=== PATIENT | male | born 1970 | race Two or more races ===

== ENCOUNTER 2021-11-04 12:58 | Emergency (ER) | payer BC ==
[2021-11-04 13:07] VITALS: TEMP 98.2
[2021-11-04 13:10] LABS: Glucose,Whole Blood 171 mg/dL (70-110)
[2021-11-04] MEDS ORDERED: SODIUM CHLORIDE 0.9% 1,000 ML IV ONE (13:38)
[2021-11-04] MEDS ORDERED: SODIUM CHLORIDE 0.9% 500 ML 500 ML IV ONE (13:38)
[2021-11-04] MEDS ORDERED: LORazepam 1 MG TAB PO STA (13:39)
--- NOTE | 2021-11-04 13:50 | ED ---
General Adult HPI - General Chief complaint: Neuro Symptoms/Deficit Stated complaint: neuro issue Time Seen by Provider: 11/04/21 13:30 Source: patient, RN notes reviewed, old records reviewed Mode of arrival: wheelchair Limitations: no limitations - History of Present Illness Initial comments: This is a 51-year-old male who presents to the emergency department and states she woke up this morning just not feeling right. Patient states he went to work felt a little lightheaded and had some tingling in both of his hands both his feet and had a little bit of the shakes was finding it difficult to right. Patient states he is a drinker daily and he hasn't had anything to drink yet today. Patient denies any fever chills. Patient denies headache. Patient denies any actual weakness or numbness. Patient denies any chest pain palpitations difficulty breathing shortest breath per patient denies any recent fever chills or cough per patient has abdominal pain patient denies nausea vomiting diarrhea. Patient states currently his only complaint is overall he feels a little weak. Patient states because he drinks so much she doesn't eat very well at all. - Related Data Previous Rx's Medication Instructions Recorded Metoprolol Tartrate [Lopressor] 12.5 mg PO BID 30 Days #60 tablet 11/04/21 Allergies Allergy/AdvReac Type Severity Reaction Status Date / Time Sulfa (Sulfonamide Allergy Itchy Eyes Verified 11/04/21 14:10 Antibiotics) Review of Systems ROS Statement: Those systems with pertinent positive or pertinent negative responses have been documented in the HPI. ROS Other: All systems not noted in ROS Statement are negative. Past Medical History Past Medical History: No Reported History History of Any Multi-Drug Resistant Organisms: None Reported Past Surgical History: No Surgical Hx Reported Past Psychological History: Anxiety Smoking Status: Current every day smoker Past Alcohol Use History: Occasional Past Drug Use History: None Reported General Exam - General Exam Comments Initial Comments: GENERAL: Patient is well-developed and well-nourished. Patient is nontoxic and well- hydrated and is in mild distress. ENT: Neck is soft and supple. No significant lymphadenopathy is noted. Oropharynx is clear. Moist mucous membranes. Neck has full range of motion without eliciting any pain. EYES: The sclera were anicteric and conjunctiva were pink and moist. Extraocular movements were intact and pupils were equal round and reactive to light. Eyelids were unremarkable. PULMONARY: Unlabored respirations. Good breath sounds bilaterally. No audible rales rhonchi or wheezing was noted. CARDIOVASCULAR: Patient is tachycardic at 110 beats a minute. ABDOMEN: Soft and nontender with normal bowel sounds. SKIN: Skin is clear with no lesions or rashes and otherwise unremarkable. NEUROLOGIC: Patient is alert and oriented x3. Cranial nerves II through XII are grossly intact. Motor and sensory are also intact. Normal speech, volume and content. Symmetrical smile. Patient has a little bit of tremor in his hands but he states this is secondary to not having drank all day normal by now he had a couple beers. MUSCULOSKELETAL: Normal extremities with adequate strength and full range of motion. LYMPHATICS: No significant lymphadenopathy is noted PSYCHIATRIC: Normal psychiatric evaluation. Limitations: no limitations Course Vital Signs 11/04/21 11/04/21 13:01 13:59 Temperature 98.2 F Pulse Rate 112 H 91 Respiratory 18 16 Rate Blood Pressure 182/90 176/96 O2 Sat by Pulse 99 98 Oximetry Medical Decision Making - Medical Decision Making EKG shows sinus rhythm at 94 bpm WA interval 233 QRS is 88 QT interval 06/[birth year]1929 QTC is 36 per patient's EKG shows some peaked T waves in V3 V4 and V5. There is no ST segment elevation Patient was given fluids and felt considerably better. Patient's sodium was low but he admits to eating poorly and drinking daily. Patient states getting a primary medical care doctor patient's mother and sister in the room and in agreement that he has take better care of himself. - Lab Data Result diagrams: 11/04/21 13:59 11/04/21 13:59 Lab Results 11/04/21 11/04/21 11/04/21 Range/Units 13:09 13:59 13:59 WBC 7.9 (3.8-10.6) k/uL RBC 4.48 (4.30-5.90) m/uL Hgb 13.4 (13.0-17.5) gm/dL Hct 39.1 (39.0-53.0) % MCV 87.3 (80.0-100.0) fL MCH 30.0 (25.0-35.0) pg MCHC 34.4 (31.0-37.0) g/dL RDW 13.8 (11.5-15.5) % Plt Count 300 (150-450) k/uL MPV 6.5 Neutrophils % (Manual) 75 % Lymphocytes % (Manual) 14 % Monocytes % (Manual) 10 % Basophils % (Manual) 1 % Neutrophils # (Manual) 5.93 (1.3-7.7) k/uL Lymphocytes # (Manual) 1.11 (1.0-4.8) k/uL Monocytes # (Manual) 0.79 (0-1.0) k/uL Basophils # (Manual) 0.08 (0-0.2) k/uL Nucleated RBCs 0 (0-0) /100 WBC Manual Slide Review Performed Sodium 125 L (137-145) mmol/L Potassium 3.8 (3.5-5.1) mmol/L Chloride 90 L (98-107) mmol/L Carbon Dioxide 26 (22-30) mmol/L Anion Gap 9 mmol/L BUN 6 L (9-20) mg/dL Creatinine 0.61 L (0.66-1.25) mg/dL Est GFR (CKD-EPI)AfAm >90 (>60 ml/min/1.73 sqM) Est GFR (CKD-EPI)NonAf >90 (>60 ml/min/1.73 sqM) Glucose 170 H (74-99) mg/dL POC Glucose (mg/dL) 171 H (70-110) mg/dL POC Glu Retreader ID Marimar Cruz Calcium 9.5 (8.4-10.2) mg/dL Magnesium 1.6 (1.6-2.3) mg/dL Total Bilirubin 0.8 (0.2-1.3) mg/dL AST 102 H (17-59) U/L ALT 79 H (4-49) U/L Alkaline Phosphatase 59 (38-126) U/L Total Protein 7.6 (6.3-8.2) g/dL Albumin 4.9 (3.5-5.0) g/dL Serum Alcohol <10 mg/dL Disposition Clinical Impression: Alcohol abuse, Hyponatremia, High blood pressure, Generalized weakness Disposition: HOME SELF-CARE Condition: Good Instructions (If sedation given, give patient instructions): Hypertension (ED), Hyponatremia (ED) Additional Instructions: Patient needs to get a primary medical care doctor Patient needs to cut down on the alcohol consumption. Patient needs to eat more healthy diet. Patient needs take blood pressure medications as prescribed. Prescriptions: Metoprolol Tartrate [Lopressor] 12.5 mg PO BID 30 Days #60 tablet Is patient prescribed a controlled substance at d/c from ED?: No Referrals: None,Stated [Primary Care Provider] - 1-2 days Time of Disposition: 16:00
[2021-11-04 14:00] VITALS: PULSE 91
[2021-11-04 14:11] LABS: HCT 39.1 % (39.0-53.0); HGB 13.4 gm/dL (13.0-17.5); MCHC 34.4 g/dL (31.0-37.0); MCV 87.3 fL (80.0-100.0); Mean Platelet Volume 6.5; Platelet Count 300 k/uL (150-450); RBC 4.48 m/uL (4.30-5.90); RDW 13.8 % (11.5-15.5); WBC 7.9 k/uL (3.8-10.6)
[2021-11-04 14:23] LABS: ALT 79 U/L (4-49); AST 102 U/L (17-59); African American GFR (CKD) >90 (>60 ml/min/1.73 sqM); Albumin 4.9 g/dL (3.5-5.0); Alcohol <10 mg/dL; Alkaline Phosphatase 59 U/L (38-126); Anion Gap 9 mmol/L; Blood Urea Nitrogen 6 mg/dL (9-20); Calcium 9.5 mg/dL (8.4-10.2); Carbon Dioxide 26 mmol/L (22-30); Chloride 90 mmol/L (98-107); Glucose 170 mg/dL (74-99); Magnesium 1.6 mg/dL (1.6-2.3); Non-African American GFR(CKD) >90 (>60 ml/min/1.73 sqM); Potassium 3.8 mmol/L (3.5-5.1); Sodium 125 mmol/L (137-145); Total Bilirubin 0.8 mg/dL (0.2-1.3); Total Protein 7.6 g/dL (6.3-8.2)
[2021-11-04 14:56] LABS: Basophils # (M) 0.08 k/uL (0-0.2); Lymphocytes # (M) 1.11 k/uL (1.0-4.8); Monocytes # (M) 0.79 k/uL (0-1.0); Neutrophils # (M) 5.93 k/uL (1.3-7.7); Neutrophils % (M) 75 %; Nucleated Red Blood Cells 0 /100 WBC (0-0); Total Cells Counted 100
[2021-11-04] MEDS ORDERED: hydrALAZINE HCL 20 MG/ML 1 ML VIAL IVP STA (15:35)
[2021-11-04 15:53] VITALS: RESP 22
[2021-11-04 16:20] VITALS: BP 161/95
== END 2021-11-04 16:29 | disposition home or self-care (01) ==
LOC: EC 12:58
DX: F10.10 Alcohol abuse, uncomplicated (principal); E87.1 Hypo-osmolality and hyponatremia; R03.0 Elevated blood-pressure reading, without diagnosis of hypertension; R53.1 Weakness; F17.200 Nicotine dependence, unspecified, uncomplicated; Y90.0 Blood alcohol level of less than 20 mg/100 ml
CPT/HCPCS: 36415; 93005; 80053; 83735; 85025; 80320; 99285; 96374; 96361; J0360

== ENCOUNTER 2023-11-20 05:04 | Inpatient (IN) | payer BC, OTHER ==
[2023-11-20 06:36] LABS: ALT 351 U/L (4-49); African American GFR (CKD) >90 (>60 ml/min/1.73 sqM); Anion Gap 11 mmol/L; Blood Urea Nitrogen 9 mg/dL (9-20); Calcium 8.7 mg/dL (8.4-10.2); Carbon Dioxide 27 mmol/L (22-30); Chloride 104 mmol/L (98-107); Glucose 120 mg/dL (74-99); Non-African American GFR(CKD) >90 (>60 ml/min/1.73 sqM); Sodium 142 mmol/L (137-145)
[2023-11-20 06:46] LABS: HCT 38.3 % (39.0-53.0); HGB 13.2 gm/dL (13.0-17.5); MCHC 34.4 g/dL (31.0-37.0); MCV 96.1 fL (80.0-100.0); Mean Platelet Volume 8.3; Platelet Count 308 k/uL (150-450); RBC 3.99 m/uL (4.30-5.90); RDW 14.7 % (11.5-15.5); WBC 9.4 k/uL (3.8-10.6)
--- NOTE | 2023-11-20 06:48 | CT ---
EXAMINATION TYPE: CT brain wo con DATE OF EXAM: 11/20/2023 COMPARISON: None HISTORY: Patient stats he fell at unknown time. ETOH CT DLP: 1168.6 mGycm Automated exposure control for dose reduction was used. Findings: The ventricles, basal cisterns and sulci over the convexities are within normal limits and there is n o mass effect or shift of midline structures. No abnormal density is seen throughout the brain parenchyma and there is no acute intra or extra-axia l hemorrhage. The posterior fossa including the brainstem, fourth ventricle and cerebellar pontine angles appear no rmal. Intraorbital contents appear normal and symmetric. Visualized paranasal sinuses and mastoid air cells are well aerated. The calvarium is intact. IMPRESSION: No significant abnormality seen. There is no acute bleed or mass effect.
[2023-11-20 06:50] LABS: Basophils # (M) 0.09 k/uL (0-0.2); Eosinophils # (M) 0.28 k/uL (0-0.7); Lymphocytes # (M) 3.38 k/uL (1.0-4.8); Monocytes # (M) 0.66 k/uL (0-1.0); Neutrophils # (M) 4.98 k/uL (1.3-7.7); Neutrophils % (M) 53 %; Nucleated Red Blood Cells 0 /100 WBC (0-0); Total Cells Counted 100
[2023-11-20 07:01] LABS: Alcohol 485 mg/dL
[2023-11-20 07:02] LABS: AST 744 U/L (17-59); Albumin 4.4 g/dL (3.5-5.0); Alkaline Phosphatase 206 U/L (38-126); Potassium 3.7 mmol/L (3.5-5.1); Total Protein 7.1 g/dL (6.3-8.2)
[2023-11-20] MEDS ORDERED: LORazepam 2 MG/ML INJ IV PRN ×2 (07:51)
[2023-11-20] MEDS ORDERED: ACETAMINOPHEN TAB 325 MG TAB PO PRN (07:51)
[2023-11-20] MEDS ORDERED: NALOXONE 0.4 MG/ML 1 ML VIAL IV PRN (07:51)
[2023-11-20] MEDS ORDERED: ONDANSETRON 4 MG/2 ML VIAL IVP PRN (07:51)
[2023-11-20] MEDS ORDERED: MAG HYDROX/AL HYDROX/SIMETH 30 ML CUP PO PRN (07:51)
--- NOTE | 2023-11-20 08:06 | ED ---
Fall HPI - General Chief Complaint: Fall Stated Complaint: Fall Time Seen by Provider: 11/20/23 05:50 Source: EMS Mode of arrival: EMS - History of Present Illness Initial Comments: Is a 53-year-old man who brought by ambulance to have evaluation for ground- level fall. The patient admits he was drinking a fair amount of alcohol tonight. The patient then states he tripped and fell. Patient's family was not able to get him up so they called EMS. Patient states he just has some aches. He denies ayn pain. He states there is a little bit of headache. No neurologic symptoms. 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 Fall Witnessed: no Place Fall Occurred: home Loss of Consciousness: unsure Prolonged Down Time?: no Symptoms Prior to Fall: none Severity: moderate Quality: dull Context: alcohol use Associated Symptoms: denies - Related Data Previous Rx's Medication Instructions Recorded Metoprolol Tartrate [Lopressor] 12.5 mg PO BID 30 Days #60 tablet 11/04/21 Losartan [Cozaar] 50 mg PO DAILY 30 Days #30 tab 11/23/23 Mirtazapine [Remeron] 15 mg PO HS 30 Days #30 tab 11/23/23 Naltrexone HCl [Revia] 50 mg PO DAILY 30 Days #30 tab 11/23/23 Nicotine 21Mg/24Hr Patch [Habitrol] 1 patch TRANSDERM DAILY 14 Days 11/23/23 #14 patch Thiamine [Vitamin B-1] 100 mg PO DAILY 30 Days #30 tab 11/23/23 chlordiazePOXIDE HCl [Librium] 10 mg PO TID 3 Days #9 cap 11/23/23 Allergies Allergy/AdvReac Type Severity Reaction Status Date / Time Sulfa (Sulfonamide Allergy Itchy Eyes Verified 11/20/23 09:50 Antibiotics) Review of Systems ROS Statement: Those systems with pertinent positive or pertinent negative responses have been documented in the HPI. ROS Other: All systems not noted in ROS Statement are negative. Constitutional: Denies: fever, chills Eyes: Denies: eye pain ENT: Denies: epistaxis Respiratory: Denies: cough, dyspnea Cardiovascular: Denies: chest pain, palpitations, syncope Gastrointestinal: Denies: abdominal pain, vomiting, diarrhea Genitourinary: Denies: dysuria, hematuria Musculoskeletal: Denies: back pain Skin: Denies: rash Neurological: Denies: headache, weakness Past Medical History Past Medical History: No Reported History History of Any Multi-Drug Resistant Organisms: None Reported Past Surgical History: No Surgical Hx Reported Past Psychological History: Anxiety Smoking Status: Current every day smoker Past Alcohol Use History: Abuse, Daily, Heavy Past Drug Use History: None Reported General Exam Limitations: no limitations General appearance: alert, in no apparent distress Head exam: Present: normocephalic, other (Contusion) Eye exam: Present: normal appearance, PERRL, EOMI, nystagmus. Absent: scleral icterus, conjunctival injection ENT exam: Present: mucous membranes dry Neck exam: Present: full ROM. Absent: tenderness, meningismus Respiratory exam: Present: normal lung sounds bilaterally. Absent: respiratory distress, wheezes, rales, rhonchi, stridor, chest wall tenderness Cardiovascular Exam: Present: regular rate, normal rhythm, normal heart sounds. Absent: systolic murmur, diastolic murmur, rubs, gallop GI/Abdominal exam: Present: soft. Absent: distended, tenderness, guarding, rebound, rigid Extremities exam: Present: normal inspection, normal capillary refill. Absent: pedal edema, calf tenderness Back exam: Present: normal inspection. Absent: CVA tenderness (R), CVA tenderness (L) Neurological exam: Present: alert Skin exam: Present: warm, dry Course Vital Signs 11/20/23 11/20/23 11/20/23 05:06 07:09 09:00 Temperature 97.7 F Pulse Rate 88 74 72 Respiratory 18 18 18 Rate Blood Pressure 146/62 133/91 134/81 O2 Sat by Pulse 97 98 97 Oximetry 11/20/23 11:00 Temperature Pulse Rate 74 Respiratory 18 Rate Blood Pressure 138/84 O2 Sat by Pulse 97 Oximetry Procedures - [place] Protocol (Time Out) Nurse: Sebastián Cramer Medical Decision Making - Medical Decision Making Patient is 53-year-old man here after he had ground-level fall and then was not able to get up. On the exam, the patient is very intoxicated and not behaving appropriately, therefore CT scan is obtained which I interpreted as negative for acute bony injury, negative for acute intracranial hemorrhage. Was pt. sent in by a medical professional or institution (, PA, OCCUPATIONAL THERAPY AIDES TEACHER, urgent care, hospital, or fpc...) When possible be specific @ -[No] Did you speak to anyone other than the patient for history (EMS, parent, family, police, friend...)? What history was obtained from this source @ -[No] Did you review nursing and triage notes (agree or disagree)? Why? @ -[I reviewed and agree with nursing and triage notes] Were old charts reviewed (outside hosp., previous admission, EMS record, old EKG, old radiological studies, urgent care reports/EKG's, fpc records)? Report findings @ -[No old charts were reviewed] Differential Diagnosis (chest pain, altered mental status, abdominal pain women, abdominal pain men, vaginal bleeding, weakness, fever, dyspnea, syncope, headache, dizziness, GI bleed, back pain, seizure, CVA, palpatations, mental health, musculoskeletal)? @ -[not applicable] EKG interpreted by me (3pts min.). @ -[As above] X-rays interpreted by me (1pt min.). @ -[None done] CT interpreted by me (1pt min.). @ -[I interpreted as above U/S interpreted by me (1pt. min.). @ -[None done] What testing was considered but not performed or refused? (CT, X-rays, U/S, labs)? Why? @ -[None] What meds were considered but not given or refused? Why? @ -[None] Did you discuss the management of the patient with other professionals (professionals i.e. , PA, OCCUPATIONAL THERAPY AIDES TEACHER, lab, RT, psych nurse, sexual assault social worker, communication center coordinator, teacher, chief informatics officer, embedded case manager)? Give summary @ -[Case discussed with admitting physician and treatment recommendations incorporated Was smoking cessation discussed for >3mins.? @ -[No] Was critical care preformed (if so, how long)? @ -[No] Were there social determinants of health that impacted care today? How? (Homelessness, low income, unemployed, alcoholism, drug addiction, transportation, low edu. Level, literacy, decrease access to med. care, half-way, rehab)? @ -[No] Was there de-escalation of care discussed even if they declined (Discuss DNR or withdrawal of care, Hospice)? DNR status @ -[No] What co-morbidities impacted this encounter? (DM, HTN, Smoking, COPD, CAD, Cancer, CVA, ARF, Chemo, Hep., AIDS, mental health diagnosis, sleep apnea, morbid obesity)? @ -[None] Was patient admitted / discharged? Hospital course, mention meds given and route, prescriptions, significant lab abnormalities, going to OR and other pertinent info. @ -[Patient is 53-year-old man here for evaluation after falling at home. He is found to be very intoxicated and will be admitted for impending DTs. Started on CIWA protocol Undiagnosed new problem with uncertain prognosis? @ -[No] Drug Therapy requiring intensive monitoring for toxicity (Heparin, Nitro, Insulin, Cardizem)? @ -[No] Were any procedures done? @ -[No] Diagnosis/symptom? @ -[Acute alcohol intoxication Alcoholic hepatitis Generalized weakness Acute, or Chronic, or Acute on Chronic? @ -[Acute Uncomplicated (without systemic symptoms) or Complicated (systemic symptoms)? @ -[Complicated by generalized weakness Side effects of treatment? @ -[No] Exacerbation, Progression, or Severe Exacerbation? @ -[No] Poses a threat to life or bodily function? How? (Chest pain, [place], [place], pneumonia, PE, COPD, DKA, ARF, appy, cholecystitis, CVA, Diverticulitis, Homicidal, Suicidal, threat to staff... and all critical care pts) @ -[No] - Lab Data Result diagrams: 11/23/23 04:03 11/23/23 04:03 Lab Results 11/20/23 11/20/23 Range/Units 05:56 05:56 WBC 9.4 (3.8-10.6) k/uL RBC 3.99 L (4.30-5.90) m/uL Hgb 13.2 (13.0-17.5) gm/dL Hct 38.3 L (39.0-53.0) % MCV 96.1 (80.0-100.0) fL MCH 33.0 (25.0-35.0) pg MCHC 34.4 (31.0-37.0) g/dL RDW 14.7 (11.5-15.5) % Plt Count 308 (150-450) k/uL MPV 8.3 Neutrophils % (Manual) 53 % Lymphocytes % (Manual) 36 % Monocytes % (Manual) 7 % Eosinophils % (Manual) 3 % Basophils % (Manual) 1 % Neutrophils # (Manual) 4.98 (1.3-7.7) k/uL Lymphocytes # (Manual) 3.38 (1.0-4.8) k/uL Monocytes # (Manual) 0.66 (0-1.0) k/uL Eosinophils # (Manual) 0.28 (0-0.7) k/uL Basophils # (Manual) 0.09 (0-0.2) k/uL Nucleated RBCs 0 (0-0) /100 WBC Manual Slide Review Performed Sodium 142 (137-145) mmol/L Potassium 3.7 (3.5-5.1) mmol/L Chloride 104 (98-107) mmol/L Carbon Dioxide 27 (22-30) mmol/L Anion Gap 11 mmol/L BUN 9 (9-20) mg/dL Creatinine 0.46 L (0.66-1.25) mg/dL Est GFR (CKD-EPI)AfAm >90 (>60 ml/min/1.73 sqM) Est GFR (CKD-EPI)NonAf >90 (>60 ml/min/1.73 sqM) Glucose 120 H (74-99) mg/dL Calcium 8.7 (8.4-10.2) mg/dL Total Bilirubin 1.0 (0.2-1.3) mg/dL AST 744 H (17-59) U/L ALT 351 H (4-49) U/L Alkaline Phosphatase 206 H (38-126) U/L Total Protein 7.1 (6.3-8.2) g/dL Albumin 4.4 (3.5-5.0) g/dL Serum Alcohol 485 H* mg/dL Disposition Clinical Impression: Fall, AMS (altered mental status), Acute alcohol intoxication Disposition: ADMITTED IP TO THIS HOSP Condition: Stable Is patient prescribed a controlled substance at d/c from ED?: No
[2023-11-20] MEDS: SODIUM CHLORIDE 0.9% 1,000 ML IV SCH (08:30)
--- NOTE | 2023-11-20 14:04 | P.HPIM ---
History of Present Illness H&P Date: 11/20/23 Con Prabhakar, is a 53-year-old male who presented to [facility] emergency room with a chief complaint of fall with injury, acute alcohol intoxication, and mental status changes He was evaluated in the emergency room vital examination on presentation revealed a temperature of 97.7 pulse 88 respiration 18 blood pressure 146/62 pulse ox 97% on room air Laboratory data revealed a white blood count of 9.4 hemoglobin 13.2 platelet count 308 BUN 9 creatinine 0.46 AST 744 ALT 351 alkaline phosphatase 206 serum alcohol level 485 Testing in the emergency room revealed CT scan of the brain did not reveal any acute abnormality Patient was admitted to medical floor for further evaluation and treatment Past Medical History Past Medical History: No Reported History History of Any Multi-Drug Resistant Organisms: None Reported Past Surgical History: No Surgical Hx Reported Past Psychological History: Anxiety Smoking Status: Current every day smoker Past Alcohol Use History: Abuse, Daily, Heavy Past Drug Use History: None Reported Medications and Allergies Home Medications Medication Instructions Recorded Confirmed Type Metoprolol Tartrate [Lopressor] 12.5 mg PO BID 30 Days #60 tablet 11/04/21 11/20/23 Rx Allergies Allergy/AdvReac Type Severity Reaction Status Date / Time Sulfa (Sulfonamide Allergy Itchy Eyes Verified 11/20/23 09:50 Antibiotics) Physical Exam Vitals: Vital Signs Temp Pulse Resp BP Pulse Ox 11/20/23 09:00 72 18 134/81 97 11/20/23 07:09 74 18 133/91 98 11/20/23 05:06 97.7 F 88 18 146/62 97 Intake and Output 11/19/23 11/20/23 11/20/23 22:59 06:59 14:59 Other: Weight 58.967 kg In general patient is alert and oriented x 3 in no distress HEENT head normocephalic there is bruising above and below the left eye Neck is supple no JVD no goiter no lymphadenopathy no carotid bruit Chest examination is clear to auscultation no crackles no wheezing Cardiac exam reveals regular heart sounds S1 and S2 no gallops no murmurs Abdomen is soft nontender no organomegaly with normal bowel sounds Extremity exam reveals no edema no cyanosis or clubbing Neurological examination reveals no gross focal deficits Results CBC & Chem 7: 11/20/23 05:56 11/20/23 05:56 Labs: Abnormal Lab Results - Last 24 Hours (Table) 11/20/23 11/20/23 Range/Units 05:56 05:56 RBC 3.99 L (4.30-5.90) m/uL Hct 38.3 L (39.0-53.0) % Creatinine 0.46 L (0.66-1.25) mg/dL Glucose 120 H (74-99) mg/dL AST 744 H (17-59) U/L ALT 351 H (4-49) U/L Alkaline Phosphatase 206 H (38-126) U/L Serum Alcohol 485 H* mg/dL Assessment and Plan Plan: Fall with injury Acute mental status changes Severe alcohol intoxication Acute alcoholic hepatitis Evidence of depression Underlying history of hypertension Underlying history of hyperlipidemia At this time patient was seen and examined He was admitted to medical floor Home medications reviewed and reordered Patient was started on CIWA protocol Psychiatry consultation requested Will follow closely
[2023-11-20] MEDS: LORazepam 2 MG/ML INJ IV PRN (17:26)
--- NOTE | 2023-11-20 18:56 | P.CN ---
Psychiatric Consult - . Consult date: 11/20/23 Consult:: 11/20/23 18:44 IDENTIFYING DATA: This patient is a 53-year-old male REASON FOR REFERRAL: Psychiatry was consulted for Depression and alcohol withdrawal HISTORY OF PRESENT ILLNESS: The patient presented to the hospital for falls due to alcohol intoxication and subsequent withdrawal. Patient seen bedside this evening. He states that he has been consuming 2 pints of vodka over the past one week. He reports consuming beer prior to this. He states that he has had a long history of alcohol use and has been to [facility] in the past year. He is interested in Rehab. Patient is currently tremulous but otherwise denies alcohol withdrawal symptoms. He has been receiving Ativan per [place] protocol. Patient also admits to depressed mood that has worsened over the past few months. He admits that alcohol consumption has worsened his mood also. However, he endorses having low mood on the inside prior to consuming alcohol. He currently states that he has trouble sleeping without alcohol, has fluctua ting appetite, has anhedonia, and psychomotor retardation. He denies suicidal ideation, intent or plan,as asked and assessed. He denies homicidal ideation. Patient also states that he is chronically worried, has anxiety since he can remember. He endorses having racing thoughts, trouble relaxing, feeling on edge, muscle fatigue due to his anxiety. He denies symptoms consistent with corrine. Patient denies any auditory, visual hallucinations and denies any paranoia or delusions, as asked and assessed. PAST PSYCHIATRIC HISTORY: Patient denies a history of psychiatric medication treatment or management. He reports he has been on Xanax in the past for alcohol withdrawal but otherwise denies being on psychotropic medications. She denies any psychiatric hospitalizations. He denies NSSI and suicide attempts. PAST MEDICAL HISTORY: Past Medical History: No Reported History History of Any Multi-Drug Resistant Organisms: None Reported Past Surgical History: No Surgical Hx Reported Past Psychological History: Anxiety Smoking Status: Current every day smoker Past Alcohol Use History: Abuse, Daily, Heavy Past Drug Use History: None Reported ALLERGIES: as per EMR. CHEMICAL DEPENDENCY HISTORY: as per HPI. Patient also reports having used cannabis in the past but denies this recently. He endorses being a one pack per day smoker. He denies other substance use. He is interested in tobacco ce ssation. FAMILY PSYCHIATRIC/SUBSTANCE USE HISTORY: Father: Alcohol. Mother's side: Alcohol. Mother: Depression. Brother: Alcohol. SOCIAL HISTORY: Patient states that he is currently residing with a friend who is supportive. He also reports that his family is largely supportive. MENTAL STATUS EXAM: General Appearance: Patient appears to be stated age is alert, pleasant, and cooperative. Patient appears to have fair hygiene and grooming wearing hospital gown with fair eye contact. Behavior: Patient is calmly lying in bed without any agitated behavior. Bilateral tremor notable Speech: Patient's speech is fluent and nonpressured. Mood/Affect: Patient reports their mood is "fine", affect is congruent Suicidality/Homicidality: Patient denies having any suicidal or homicidal ideation intent or plan. Perceptions: Patient denies any visual hallucinations and denies any auditory hallucinations Though content/process: There is no evidence of any delusional thought content and thought process is linear and goal-directed. Memory and concentration: AOX3, grossly intact for the purposes of this session. Can spell "WORLD" backwards Judgment and insight: Fair IMPRESSIONS: Depressive disorder, unspecified. MDD vs alcohol-induced mood disorder Alcohol use disorder, severe, in withdrawal Generalized anxiety disorder Nicotine dependence PLAN: -At this time patient DOES NOT meet criteria for inpatient psychiatric admission -Would recommend the following medication changes/additions: Start Remeron 15 mg qHS for mood & sleep Start Naltrexone 50 mg daily for alcohol craving Start Librium 10 mg TID for preventing withdrawal. Taper daily as tolerated -CIWA protocol with PRN Ativan for alcohol withdrawal per primary team. Continue to monitor vital signs. Continue thiamin -cold storage worker to provide patient with outpatient mental health/psychiatry resources for appropriate follow up upon discharge -[employer] spoke with patient about substance abuse and the harmful effects on medical and mental health, patient verbally understood and agreed. -cold storage worker to provide patient substance use treatment resources including AA meetings in the community.] -cold storage worker to provide patient with access line number to call for inpatient substance rehab -Communicated plan to patient's nurse -Psychiatry will sign off at this time -Please contact with any questions.
[2023-11-20] MEDS: NALTREXONE HCL 50 MG TAB PO SCH (20:57)
[2023-11-20] MEDS: MIRTAZAPINE 15 MG TAB PO SCH (20:58)
[2023-11-20] MEDS: METOPROLOL TARTRATE 12.5 MG TAB PO SCH (20:58)
[2023-11-21] MEDS: THIAMINE 100 MG TAB PO SCH (08:21)
--- NOTE | 2023-11-21 09:33 | P.PN ---
Subjective Progress Note Date: 11/21/23 Con Prabhakar, is a 53-year-old male who presented to [facility] emergency room with a chief complaint of fall with injury, acute alcohol intoxication, and mental status changes He was evaluated in the emergency room vital examination on presentation revealed a temperature of 97.7 pulse 88 respiration 18 blood pressure 146/62 pulse ox 97% on room air Laboratory data revealed a white blood count of 9.4 hemoglobin 13.2 platelet count 308 BUN 9 creatinine 0.46 AST 744 ALT 351 alkaline phosphatase 206 serum alcohol level 485 Testing in the emergency room revealed CT scan of the brain did not reveal any acute abnormality Patient was admitted to medical floor for further evaluation and treatment On 11/21/2023 patient is alert and oriented x 3. Patient still requiring some At [place] for alcohol withdrawal per nursing staff. Patient was evaluated by psychiatry services Librium and Remeron had been ordered. Current vital signs Temp 98.3, heart 69, respiratory rate 19, blood pressure 166/92. Patient denies chest pain or shortness of breath. Patient denies nausea vomiting or diarrhea. Patient denies any urinary burning or frequency Objective - Vital Signs Vital signs: Vital Signs Temp 98.2 F 11/21/23 02:00 Pulse 68 11/21/23 02:00 Resp 17 11/20/23 11:40 BP 186/93 11/21/23 02:00 Pulse Ox 97 11/21/23 02:00 FiO2 Intake & Output 11/20/23 11/21/23 11/21/23 18:59 06:59 18:59 Intake Total 900 Balance 900 Weight 58.967 kg Intake: Intake, IV Titration 900 Amount Sodium Chloride 0.9% 1, 900 000 ml @ 75 mls/hr IV . [id number] [facility] Rx#:[id number] Other: # Voids 4 - Exam In general patient is alert and oriented x 3 in no distress HEENT head normocephalic there is bruising above and below the left eye Neck is supple no JVD no goiter no lymphadenopathy no carotid bruit Chest examination is clear to auscultation no crackles no wheezing Cardiac exam reveals regular heart sounds S1 and S2 no gallops no murmurs Abdomen is soft nontender no organomegaly with normal bowel sounds Extremity exam reveals no edema no cyanosis or clubbing Neurological examination reveals no gross focal deficits - Labs CBC & Chem 7: 07/27/24 05:56 11/20/23 05:56 Assessment and Plan Plan: Fall with injury Acute mental status changes Severe alcohol intoxication Acute alcoholic hepatitis Evidence of depression Underlying history of hypertension Underlying history of hyperlipidemia At this time patient was seen and examined He was admitted to medical floor Home medications reviewed and reordered Patient was started on CIWA protocol Psychiatry consultation requested Will follow closely
[2023-11-21 10:04] LABS: Basophils # (A) 0.06 X 10*3/uL (0.00-0.10); Eosinophils % (A) 1.7 %; HCT 34.9 % (39.6-50.0); HGB 12.1 g/dL (13.0-17.0); Lymphocytes % (A) 20.4 %; MCH 32.1 pg (27.0-32.0); MCHC 34.7 g/dL (32.0-37.0); MCV 92.6 FL (80.0-97.0); Mean Platelet Volume 9.3 FL (9.5-12.2); Monocytes # (A) 0.53 X 10*3/uL (0.20-1.00); NRBC Per 100 WBC 0 X 10*3/uL (0.00-0.01); Neutrophils # (A) 3.93 X 10*3/uL (1.80-7.70); Neutrophils % (A) 66.7 %; Platelet Count 239 X 10*3/uL (140-440); RBC 3.77 X 10*6/uL (4.40-5.60); RDW 14.7 % (11.5-14.5); WBC 5.89 X 10*3/uL (4.50-10.00)
[2023-11-21 10:25] LABS: ALT 311 U/L (10-49); AST 422 U/L (14-35); Albumin 4.3 g/dL (3.8-4.9); Albumin/Globulin Ratio 1.87 Ratio (1.60-3.17); Alkaline Phosphatase 213 U/L (41-126); BUN/Creat Ratio 17.75 Ratio (12.00-20.00); Blood Urea Nitrogen 7.1 mg/dL (9.0-27.0); Calcium 8.6 mg/dL (8.7-10.3); Carbon Dioxide 28.6 mmol/L (21.6-31.8); Chloride 96 mmol/L (96-109); Globulin 2.3 g/dL (1.6-3.3); Glucose 93 mg/dL (70-110); Sodium 139 mmol/L (135-145); Total Bilirubin 1.2 mg/dL (0.3-1.2); Total Protein 6.6 g/dL (6.2-8.2)
[2023-11-21] MEDS: NICOTINE 21MG/24HR PATCH TRANSDERM SCH (16:59)
[2023-11-22 08:48] LABS: Basophils # (A) 0.08 X 10*3/uL (0.00-0.10); Basophils % (A) 1.2 %; Eosinophils % (A) 2.9 %; HCT 37.2 % (39.6-50.0); HGB 12.7 g/dL (13.0-17.0); Lymphocytes # (A) 1.37 X 10*3/uL (0.90-5.00); Lymphocytes % (A) 20.1 %; MCH 31.9 pg (27.0-32.0); MCHC 34.1 g/dL (32.0-37.0); MCV 93.5 FL (80.0-97.0); Mean Platelet Volume 9.5 FL (9.5-12.2); Monocytes # (A) 0.61 X 10*3/uL (0.20-1.00); NRBC Per 100 WBC 0 X 10*3/uL (0.00-0.01); Neutrophils # (A) 4.43 X 10*3/uL (1.80-7.70); Neutrophils % (A) 65.2 %; Platelet Count 246 X 10*3/uL (140-440); RBC 3.98 X 10*6/uL (4.40-5.60); RDW 14.5 % (11.5-14.5)
[2023-11-22 09:23] LABS: ALT 382 U/L (10-49); AST 521 U/L (14-35); Albumin 4.4 g/dL (3.8-4.9); Albumin/Globulin Ratio 1.83 Ratio (1.60-3.17); Alkaline Phosphatase 231 U/L (41-126); Blood Urea Nitrogen 5.7 mg/dL (9.0-27.0); Calcium 9.2 mg/dL (8.7-10.3); Carbon Dioxide 25.6 mmol/L (21.6-31.8); Chloride 99 mmol/L (96-109); Globulin 2.4 g/dL (1.6-3.3); Glucose 94 mg/dL (70-110); Potassium 3.1 mmol/L (3.5-5.5); Sodium 140 mmol/L (135-145); Total Bilirubin 1.7 mg/dL (0.3-1.2); Total Protein 6.8 g/dL (6.2-8.2)
[2023-11-22] MEDS ORDERED: Potassium Replacement Protocol 1 EACH MISC MISCELLANE PRN (10:06)
--- NOTE | 2023-11-22 13:17 | P.PN ---
Subjective Progress Note Date: 11/22/23 Con Prabhakar, is a 53-year-old male who presented to [facility] emergency room with a chief complaint of fall with injury, acute alcohol intoxication, and mental status changes He was evaluated in the emergency room vital examination on presentation revealed a temperature of 97.7 pulse 88 respiration 18 blood pressure 146/62 pulse ox 97% on room air Laboratory data revealed a white blood count of 9.4 hemoglobin 13.2 platelet count 308 BUN 9 creatinine 0.46 AST 744 ALT 351 alkaline phosphatase 206 serum alcohol level 485 Testing in the emergency room revealed CT scan of the brain did not reveal any acute abnormality Patient was admitted to medical floor for further evaluation and treatment On 11/21/2023 patient is alert and oriented x 3. Patient still requiring some At [place] for alcohol withdrawal per nursing staff. Patient was evaluated by psychiatry services Librium and Remeron had been ordered. Current vital signs Temp 98.3, heart 69, respiratory rate 19, blood pressure 166/92. Patient denies chest pain or shortness of breath. Patient denies nausea vomiting or diarrhea. Patient denies any urinary burning or frequency. On 11/22/2023 patient was seen and examined on the medical floor he is alert and oriented x 3 in no apparent distress, he has mild tremor otherwise no complaints, there is no fever or chills no headache or dizziness no chest pain no shortness of breath no cough no nausea or vomiting no abdominal pain no diarrhea no urinary symptoms, his potassium is low and being corrected by the protocol, his blood pressure is elevated and losartan 50 mg once daily was added to his medication regimen, will continue with current management otherwise he was counseled again in regard to alcohol abstinence, will follow in a.m. possible discharge to home tomorrow. Objective - Vital Signs Vital signs: Vital Signs Temp 98.2 F 11/22/23 07:44 Pulse 78 11/22/23 07:44 Resp 17 11/22/23 07:44 BP 151/84 11/22/23 07:44 Pulse Ox 98 11/22/23 07:44 FiO2 Intake & Output 11/21/23 11/22/23 11/22/23 18:59 06:59 18:59 Other: # Voids 3 - Exam In general patient is alert and oriented x 3 in no distress HEENT head normocephalic there is bruising above and below the left eye Neck is supple no JVD no goiter no lymphadenopathy no carotid bruit Chest examination is clear to auscultation no crackles no wheezing Cardiac exam reveals regular heart sounds S1 and S2 no gallops no murmurs Abdomen is soft nontender no organomegaly with normal bowel sounds Extremity exam reveals no edema no cyanosis or clubbing Neurological examination reveals no gross focal deficits - Labs CBC & Chem 7: 11/22/23 03:53 11/22/23 03:53 Labs: Abnormal Lab Results - Last 24 Hours (Table) 11/21/23 11/22/23 11/22/23 Range/Units 04:02 03:53 03:53 RBC 3.98 L (4.40-5.60) X 10*6/uL Hgb 12.7 L (13.0-17.0) g/dL Hct 37.2 L (39.6-50.0) % Immature Gran # 0.11 H (0.00-0.04) X 10*3/uL Potassium 3.0 L 3.1 L (3.5-5.5) mmol/L Anion Gap 14.40 H 15.40 H (4.00-12.00) mmol/L BUN 7.1 L 5.7 L (9.0-27.0) mg/dL Creatinine 0.4 L 0.5 L (0.6-1.5) mg/dL BUN/Creatinine Ratio 11.40 L (12.00-20.00) Ratio Calcium 8.6 L (8.7-10.3) mg/dL Total Bilirubin 1.7 H (0.3-1.2) mg/dL AST 422 H 521 H (14-35) U/L ALT 311 H 382 H (10-49) U/L Alkaline Phosphatase 213 H 231 H (41-126) U/L Assessment and Plan Plan: Fall with injury Acute mental status changes Severe alcohol intoxication Acute alcoholic hepatitis Evidence of depression Underlying history of hypertension Underlying history of hyperlipidemia At this time patient was seen and examined He was admitted to medical floor Home medications reviewed and reordered Patient was started on CIWA protocol Psychiatry consultation requested Will follow closely
[2023-11-22] MEDS: LOSARTAN 50 MG TAB PO SCH (14:26)
[2023-11-22 16:03] VITALS: BMI 18.6
[2023-11-22 20:21] VITALS: RESP 18
[2023-11-23 08:02] VITALS: BP 167/91; PULSE 72; TEMP 97.4
[2023-11-23 08:45] LABS: Basophils # (A) 0.09 X 10*3/uL (0.00-0.10); Basophils % (A) 1.1 %; Eosinophils # (A) 0.23 X 10*3/uL (0.04-0.35); Eosinophils % (A) 2.7 %; HCT 36.3 % (39.6-50.0); HGB 12.1 g/dL (13.0-17.0); Lymphocytes # (A) 1.62 X 10*3/uL (0.90-5.00); Lymphocytes % (A) 19.3 %; MCH 31.5 pg (27.0-32.0); MCHC 33.3 g/dL (32.0-37.0); MCV 94.5 FL (80.0-97.0); Monocytes % (A) 9.5 %; NRBC Per 100 WBC 0 X 10*3/uL (0.00-0.01); Neutrophils # (A) 5.52 X 10*3/uL (1.80-7.70); Neutrophils % (A) 65.9 %; Platelet Count 240 X 10*3/uL (140-440); RBC 3.84 X 10*6/uL (4.40-5.60); RDW 14.8 % (11.5-14.5); WBC 8.39 X 10*3/uL (4.50-10.00)
[2023-11-23 08:59] LABS: ALT 322 U/L (10-49); AST 323 U/L (14-35); Albumin 4.4 g/dL (3.8-4.9); Albumin/Globulin Ratio 1.91 Ratio (1.60-3.17); Alkaline Phosphatase 226 U/L (41-126); Calcium 9.3 mg/dL (8.7-10.3); Carbon Dioxide 24.3 mmol/L (21.6-31.8); Chloride 101 mmol/L (96-109); Globulin 2.3 g/dL (1.6-3.3); Glucose 98 mg/dL (70-110); Potassium 3.3 mmol/L (3.5-5.5); Sodium 139 mmol/L (135-145); Total Bilirubin 1.6 mg/dL (0.3-1.2); Total Protein 6.7 g/dL (6.2-8.2)
--- NOTE | 2023-11-23 11:00 | P.DS ---
Providers Date of admission: 11/20/23 07:51 Expected date of discharge: 11/23/23 Attending physician: Brian Dobson Consults: 11/20/23 14:04 Consult Physician Routine Consulting Provider: Hernán Bello Consult Reason/Comments: Depression, alcohol abuse Do you want consulting provider notified?: Yes Primary care physician: Brian Dobson [place] [facility] Course: Discharge diagnosis Fall with injury Acute mental status changes Severe alcohol intoxication Acute alcoholic hepatitis Evidence of depression Underlying history of hypertension Underlying history of hyperlipidemia Hospital course Con Prabhakar, is a 53-year-old male who presented to [facility] emergency room with a chief complaint of fall with injury, acute alcohol intoxication, and mental status changes He was evaluated in the emergency room vital examination on presentation revealed a temperature of 97.7 pulse 88 respiration 18 blood pressure 146/62 pulse ox 97% on room air Laboratory data revealed a white blood count of 9.4 hemoglobin 13.2 platelet count 308 BUN 9 creatinine 0.46 AST 744 ALT 351 alkaline phosphatase 206 serum alcohol level 485 Testing in the emergency room revealed CT scan of the brain did not reveal any acute abnormality Patient was admitted to medical floor for further evaluation and treatment On 11/21/2023 patient is alert and oriented x 3. Patient still requiring some Ativan for alcohol withdrawal per nursing staff. Patient was evaluated by psychiatry services Librium and Remeron had been ordered. Current vital signs Temp 98.3, heart 69, respiratory rate 19, blood pressure 166/92. Patient denies chest pain or shortness of breath. Patient denies nausea vomiting or diarrhea. Patient denies any urinary burning or frequency. On 11/22/2023 patient was seen and examined on the medical floor he is alert and oriented x 3 in no apparent distress, he has mild tremor otherwise no compl aints, there is no fever or chills no headache or dizziness no chest pain no shortness of breath no cough no nausea or vomiting no abdominal pain no diarrhea no urinary symptoms, his potassium is low and being corrected by the protocol, his blood pressure is elevated and losartan 50 mg once daily was added to his medication regimen, will continue with current management otherwise he was counseled again in regard to alcohol abstinence, will follow in a.m. possible discharge to home tomorrow. On 11/23/2023 patient is alert and oriented x 3. Patient feels ready for discharge home. Patient again advised on the importance of complete alcohol cessation resources given per social work. Patient discharged on Remeron, and naltrexone and Librium per psychiatry recommendation. Patient denies chest pain or shortness of breath. Patient denies nausea vomiting or diarrhea. Patient denies any urinary burning or frequency Patient Condition at Discharge: Stable Plan - Discharge Summary Discharge Rx Participant: Yes New Discharge Prescriptions: New Losartan [Cozaar] 50 mg PO DAILY 30 Days #30 tab Thiamine [Vitamin B-1] 100 mg PO DAILY 30 Days #30 tab Nicotine 21Mg/24Hr Patch [Habitrol] 1 patch TRANSDERM DAILY 14 Days #14 patch chlordiazePOXIDE HCl [Librium] 10 mg PO TID 3 Days #9 cap Mirtazapine [Remeron] 15 mg PO HS 30 Days #30 tab Naltrexone HCl [Revia] 50 mg PO DAILY 30 Days #30 tab Continue Metoprolol Tartrate [Lopressor] 12.5 mg PO BID 30 Days #60 tablet Discharge Medication List Metoprolol Tartrate [Lopressor] 12.5 mg PO BID 30 Days #60 tablet 11/04/21 [Rx] Losartan [Cozaar] 50 mg PO DAILY 30 Days #30 tab 11/23/23 [Rx] Mirtazapine [Remeron] 15 mg PO HS 30 Days #30 tab 11/23/23 [Rx] Naltrexone HCl [Revia] 50 mg PO DAILY 30 Days #30 tab 11/23/23 [Rx] Nicotine 21Mg/24Hr Patch [Habitrol] 1 patch TRANSDERM DAILY 14 Days #14 patch 11/23/23 [Rx] Thiamine [Vitamin B-1] 100 mg PO DAILY 30 Days #30 tab 11/23/23 [Rx] chlordiazePOXIDE HCl [Librium] 10 mg PO TID 3 Days #9 cap 11/23/23 [Rx] Follow up Appointment(s)/Referral(s): Brian Dobson MD [Primary Care Provider] - 1-2 days Discharge/Stand Alone Forms: AA Meetings [facility], Outpatient Counseling, In Substance Abuse Facilities
== END 2023-11-23 12:30 | disposition home or self-care (01) | DRG 775 ==
LOC: EC 05:04 → 4SSUR 07:51
PROVIDERS: ADMIT Internal Medicine; ATTEND Internal Medicine
DX: F10.129 Alcohol abuse with intoxication, unspecified (principal); Z91.81 History of falling; E78.5 Hyperlipidemia, unspecified; F10.139 Alcohol abuse with withdrawal, unspecified; F17.200 Nicotine dependence, unspecified, uncomplicated; F32.A Depression, unspecified; F41.1 Generalized anxiety disorder; I10 Essential (primary) hypertension; K70.10 Alcoholic hepatitis without ascites; M62.89 Other specified disorders of muscle; Y90.8 Blood alcohol level of 240 mg/100 ml or more; Z88.2 Allergy status to sulfonamides; Z79.899 Other long term (current) drug therapy
CPT/HCPCS: 36415; 70450; 80053; 80320; 85025; 96361; 96374; 99285

== ENCOUNTER 2024-09-09 04:17 | Observation (INO) | payer OTHER ==
[2024-09-09] MEDS: SODIUM CHLORIDE 0.9% 1,000 ML IV STA (05:27)
[2024-09-09] MEDS: PANTOPRAZOLE 40 MG/10 ML VIAL IVP STA (05:27)
[2024-09-09 05:52] LABS: Basophils # (A) 0.06 10*3/uL (0.00-0.10); Basophils % (A) 0.7 %; Eosinophils # (A) 0.05 10*3/uL (0.04-0.35); Eosinophils % (A) 0.6 %; HCT 34.5 % (39.6-50.0); HGB 12.6 g/dL (13.0-17.0); Immature Platelet Fraction 3.4 % (1.1-6.1); Lymphocytes # (A) 2.31 10*3/uL (0.90-5.00); Lymphocytes % (A) 27.5 %; MCH 30.3 pg (27.0-32.0); MCHC 36.5 g/dL (32.0-37.0); MCV 82.9 fL (80.0-97.0); Mean Platelet Volume 9.5 fL (9.5-12.2); Monocytes # (A) 0.82 10*3/uL (0.20-1.00); Monocytes % (A) 9.8 %; Neutrophils % (A) 60.7 %; Platelet Count 116 10*3/uL (140-440); RBC 4.16 10*6/uL (4.40-5.60); RDW 14.3 % (11.5-14.5)
[2024-09-09 05:58] LABS: ALT 99 U/L (4-49); AST 301 U/L (17-59); African American GFR (CKD) >90 (>60 ml/min/1.73 sqM); Albumin 4.1 g/dL (3.5-5.0); Alkaline Phosphatase 210 U/L (38-126); Anion Gap 12 mmol/L; Blood Urea Nitrogen <2 mg/dL (9-20); Calcium 8.9 mg/dL (8.4-10.2); Carbon Dioxide 27 mmol/L (22-30); Chloride 91 mmol/L (98-107); Glucose 97 mg/dL (74-99); Lipase 170 U/L (23-300); Non-African American GFR(CKD) >90 (>60 ml/min/1.73 sqM); Sodium 130 mmol/L (137-145); Total Bilirubin 0.9 mg/dL (0.2-1.3); Total Protein 7.5 g/dL (6.3-8.2)
[2024-09-09 06:22] LABS: INR 1.1 (<1.2); Partial Thromboplastin Time 29.6 sec (22.0-30.0); Prothrombin Time 11.7 sec (10.0-12.5)
--- NOTE | 2024-09-09 06:25 | ED ---
General Adult HPI - General Chief complaint: Alcohol Stated complaint: NVD SOB Time Seen by Provider: 09/09/24 04:47 Source: patient, EMS Mode of arrival: EMS - History of Present Illness Initial comments: Patient is a pleasant 54-year-old gentleman past medical history of alcoholism, presenting today for dark tarry stools and hemoptysis. Patient states he has noticed dark tarry stools over the course of the last week. Occurs with every bowel movement. Is not on blood thinners though does drink about 18 beers a day. Last drink was just prior to arrival. Patient states he is tried to quit drinking before but has never gotten to the point of having alcohol withdrawal, no history of alcohol drawl seizures. Patient is not on blood thinners. He denies abdominal pain, did have an episode of nonbloody nonbilious emesis earlier. No fevers or chills, no chest pain. Patient states that he does endorse shortness of breath though states it has been ongoing "for a long time". He has noticed 2 episodes of hemoptysis in the last 2 weeks, describing hemoptysis as bright red sputum. He is a current cigarette smoker, no history of blood clots, no history of cancer, no recent travel surgeries or hospitalizations, no hormone replacement therapy. - Related Data Previous Rx's Medication Instructions Recorded Multivitamins, Thera [Multivitamin 1 each PO DAILY 30 Days #30 tab 09/11/24 (formulary)] Nicotine 14Mg/24Hr Patch [Habitrol] 1 patch TRANSDERM DAILY 30 Days 09/11/24 #30 patch Pantoprazole [Protonix] 40 mg PO DAILY 30 Days #30 tab 09/11/24 Thiamine [Vitamin B-1] 100 mg PO DAILY 30 Days #30 tablet 09/11/24 Allergies Allergy/AdvReac Type Severity Reaction Status Date / Time Sulfa (Sulfonamide Allergy Itchy Eyes Verified 09/09/24 13:23 Antibiotics) Review of Systems ROS Statement: Those systems with pertinent positive or pertinent negative responses have been documented in the HPI. ROS Other: All systems not noted in ROS Statement are negative. Past Medical History Past Medical History: No Reported History History of Any Multi-Drug Resistant Organisms: None Reported Past Surgical History: No Surgical Hx Reported Past Psychological History: Anxiety Smoking Status: Current every day smoker Past Alcohol Use History: Abuse, Daily, Heavy Past Drug Use History: None Reported General Exam - General Exam Comments Initial Comments: PE: CONSTITUTIONAL: No apparent distress, well appearing disheveled SKIN: Warm, dry, no jaundice, hives or petechiae EYES: Pupils are equally round, extraocular movements intact without nystagmus, clear conjunctiva, non-icteric sclera HENT: Normocephalic, atraumatic, moist mucus membranes, oropharynx clear without exudates NECK: , Full range of motion, normal appearance PULMONARY: Clear to auscultation without wheezes, rhonchi, or rales, normal excursion, no accessory muscle use and no stridor CARDIOVASCULAR: Regular rate, rhythm, normal S1 and S2. No appreciated murmurs, rubs or gallops. Strong radial pulses with intact distal perfusion. No lower extremity edema GASTROINTESTINAL: Soft, active bowel sounds throughout, non-tender, non- distended, no palpable masses, no rebound or guarding. No hepatosplenomegaly, rectal exam was performed with Bruno PCT at bedside, does show dark stool, no hemorrhoids or palpable masses MUSCULOSKELETAL: Extremities have no gross deformity, no edema, redness, or swelling. No calf swelling NEUROLOGIC:_a/o x 3, GCS 15, normal mentation and speech. Moves all extremities x 4 without motor or sensory deficit PSYCHIATRIC:_normal mood and affect, thought process is clear and linear Course Vital Signs 09/09/24 09/09/24 09/09/24 04:22 06:34 07:33 Temperature 98.4 F 98.3 F Pulse Rate 101 H 87 98 Respiratory 18 16 18 Rate Blood Pressure 129/89 131/79 120/68 O2 Sat by Pulse 97 99 95 Oximetry 09/09/24 09/09/24 09/09/24 09:27 11:34 18:31 Temperature Pulse Rate 102 H 106 H 101 H Respiratory 18 16 14 Rate Blood Pressure 117/94 130/84 144/79 O2 Sat by Pulse 98 95 97 Oximetry 09/09/24 09/10/24 09/10/24 22:33 02:44 06:25 Temperature Pulse Rate 99 92 95 Respiratory 16 18 18 Rate Blood Pressure 141/83 149/96 162/90 O2 Sat by Pulse 97 96 95 Oximetry 09/10/24 09/10/24 10:32 12:51 Temperature 97.8 F Pulse Rate 87 80 Respiratory 18 18 Rate Blood Pressure 128/80 142/96 O2 Sat by Pulse 97 98 Oximetry EKG Findings - EKG Comments: EKG Findings:: Sinus rhythm, rate 96 bpm intervals within acceptable limits, no ST elevations or depressions, no arrhythmia, no ischemic changes Medical Decision Making - Medical Decision Making Was pt. sent in by a medical professional or institution (, [facility], [facility], urgent care, hospital, or [facility]...) When possible be specific @ -No Did you speak to anyone other than the patient for history (EMS, parent, family, police, friend...)? What history was obtained from this source @ -No Did you review nursing and triage notes (agree or disagree)? Why? @ -I reviewed nursing and agree with and triage notes Were old charts reviewed (outside hosp., previous admission, EMS record, old EKG, old radiological studies, urgent care reports/EKG's, ch[facility] records)? Report findings @ -Medical records reviewed Differential Diagnosis (chest pain, altered mental status, abdominal pain women, abdominal pain men, vaginal bleeding, weakness, fever, dyspnea, syncope, headache, dizziness, GI bleed, back pain, seizure, CVA, palpatations, mental health, musculoskeletal)? @Differential GI Bleed: Esophageal varices, aortoenteric fistula, Mandie-Tony, gastritis, peptic ulcer disease, diverticulosis, inflammatory bowel disease, hemorrhoids, fissure, colitis, malignancy, Meckel's diverticulum, this is not meant to be an all- inclusive list. EKG interpreted by me (3pts min.). @ -As above X-rays interpreted by me (1pt min.). @ -None done CT interpreted by me (1pt min.). @Personally reviewed chest CT PE study, I see no evidence of pulmonary embolism agrees radiologist interpretation U/S interpreted by me (1pt. min.). @ -None done What testing was considered but not performed or refused? (CT, X-rays, U/S, labs)? Why? @CT GI bleed study was considered however patient has a benign abdominal exam, no frequent or active bloody stools, CT GI bleed study unlikely to be of benefit at this time What meds were considered but not given or refused? Why? @ -None Did you discuss the management of the patient with other professionals (professionals i.e. Dr., PA, P[employer], lab, RT, psych nurse, health care social worker, bit welder, teacher, audit officer, counseling case manager)? Give summary Case discussed with Dr. Thao, kindly agrees to remain on as senior microsoft consultant for scope for concern for upper GI bleed Was smoking cessation discussed for >3mins.? @ -No Was critical care preformed (if so, how long)? @ -No Were there social determinants of health that impacted care today? How? (Homelessness, low income, unemployed, alcoholism, drug addiction, transportation, low edu. Level, literacy, decrease access to med. care, senior care, rehab)? alcoholism Was there de-escalation of care discussed even if they declined (Discuss DNR or withdrawal of care, Hospice)? @ -No What co-morbidities impacted this encounter? (DM, HTN, Smoking, COPD, CAD, Cancer, CVA, ARF, Chemo, Hep., AIDS, mental health diagnosis, sleep apnea, morbid obesity)? @ Alcoholism, smoking Was patient admitted / discharged? Hospital course, mention meds given and route, prescriptions, significant lab abnormalities, going to OR and other pertinent info. @ -Admission-patient is a 54-year gentleman history of alcoholism presenting today for darker stools and hemoptysis. Mildly tachycardic on arrival, other vital signs otherwise stable. On my assessment he is in no acute distress. Lungs are clear to auscultation bilaterally, abdomen soft and nontender. Rectal exam was performed with dark stool, sent for Hemoccult. Given associated hemoptysis will obtain D-dimer, competence of labs, coags, type and cross, CBC, comp, troponin. Protonix ordered. Patient agreeable plan of care. Hemoccult positive. Hemoglobin is stable at 12.6. D-dimer was elevated, CT PE study was obtained that did not show evidence of PE. Given Hemoccult positive stool patient will require admission for observation and GI or surgery consult for upper endoscopy. Case discussed with Dr. Thao, who was agreeable with remaining on as senior microsoft consultant for potential scope. Patient will be admitted to internal medicine. Alcohol withdrawal protocol placed. Updated pt to findings and plan of care, to which he was agreeable. Case discussed with Dr. Dobson, who kindly accepted pt for admission. Undiagnosed new problem with uncertain prognosis? @Possible upper GI bleed Drug Therapy requiring intensive monitoring for toxicity (Heparin, Nitro, Insulin, Cardizem)? @ -No Were any procedures done? @ -No Diagnosis/symptom? @Upper GI bleed Acute, or Chronic, or Acute on Chronic? @acute Uncomplicated (without systemic symptoms) or Complicated (systemic symptoms)? @ complicated Side effects of treatment? @ -No Exacerbation, Progression, or Severe Exacerbation? @ -No Poses a threat to life or bodily function? How? (Chest pain, [place], [place], pneumonia, PE, COPD, DKA, ARF, appy, cholecystitis, CVA, Diverticulitis, Homicidal, Suicidal, threat to staff... and all critical care pts) @ -Yes, if let untreated could lead to hemorrhage and - Lab Data Result diagrams: 09/11/24 00:00 09/11/24 00:00 Lab Results 09/09/24 09/09/24 09/09/24 Range/Units 05:22 05:27 05:27 WBC 8.40 (4.50-10.00) 10*3/uL RBC 4.16 L (4.40-5.60) 10*6/uL Hgb 12.6 L (13.0-17.0) g/dL Hct 34.5 L (39.6-50.0) % MCV 82.9 (80.0-97.0) fL MCH 30.3 (27.0-32.0) pg MCHC 36.5 (32.0-37.0) g/dL Plt Count 116 L (140-440) 10*3/uL MPV 9.5 (9.5-12.2) fL Immature Gran % (Auto) 0.7 % Neutrophils % 60.7 % Lymphocytes % 27.5 % Monocytes % 9.8 % Eosinophils % 0.6 % Basophils % 0.7 % Immature Gran # 0.06 H (0.00-0.04) 10*3/uL Neutrophils # 5.10 (1.80-7.70) 10*3/uL Lymphocytes # 2.31 (0.90-5.00) 10*3/uL Monocytes # 0.82 (0.20-1.00) 10*3/uL Eosinophils # 0.05 (0.04-0.35) 10*3/uL Basophils # 0.06 (0.00-0.10) 10*3/uL Immature Plt Fraction 3.4 (1.1-6.1) % PT (10.0-12.5) sec INR (<1.2) APTT (22.0-30.0) sec D-Dimer (<0.60) mg/L FEU Sodium (137-145) mmol/L Potassium (3.5-5.1) mmol/L Chloride (98-107) mmol/L Carbon Dioxide (22-30) mmol/L Anion Gap mmol/L BUN (9-20) mg/dL Creatinine (0.66-1.25) mg/dL Est GFR (CKD-EPI)AfAm (>60 ml/min/1.73 sqM) Est GFR (CKD-EPI)NonAf (>60 ml/min/1.73 sqM) Glucose (74-99) mg/dL Calcium (8.4-10.2) mg/dL Total Bilirubin (0.2-1.3) mg/dL AST (17-59) U/L ALT (4-49) U/L Alkaline Phosphatase (38-126) U/L Troponin I (0.000-0.034) ng/mL Total Protein (6.3-8.2) g/dL Albumin (3.5-5.0) g/dL Lipase (23-300) U/L Stool Occult Blood Positive (Negative) Serum Alcohol mg/dL Blood Type O Positive Blood Type Confirm Blood Type Recheck No Previous Record Bld Type Recheck Status CABO Indicated Antibody Screen NEGATIVE Spec Expiration Date 09/12/2024 - 232109/09/24 09/09/24 09/09/24 Range/Units 05:27 05:27 05:27 WBC (4.50-10.00) 10*3/uL RBC (4.40-5.60) 10*6/uL Hgb (13.0-17.0) g/dL Hct (39.6-50.0) % MCV (80.0-97.0) fL MCH (27.0-32.0) pg MCHC (32.0-37.0) g/dL Plt Count (140-440) 10*3/uL MPV (9.5-12.2) fL Immature Gran % (Auto) % Neutrophils % % Lymphocytes % % Monocytes % % Eosinophils % % Basophils % % Immature Gran # (0.00-0.04) 10*3/uL Neutrophils # (1.80-7.70) 10*3/uL Lymphocytes # (0.90-5.00) 10*3/uL Monocytes # (0.20-1.00) 10*3/uL Eosinophils # (0.04-0.35) 10*3/uL Basophils # (0.00-0.10) 10*3/uL Immature Plt Fraction (1.1-6.1) % PT 11.7 (10.0-12.5) sec INR 1.1 (<1.2) APTT 29.6 (22.0-30.0) sec D-Dimer 0.89 H (<0.60) mg/L FEU Sodium 130 L (137-145) mmol/L Potassium 3.0 L (3.5-5.1) mmol/L Chloride 91 L (98-107) mmol/L Carbon Dioxide 27 (22-30) mmol/L Anion Gap 12 mmol/L BUN <2 L (9-20) mg/dL Creatinine 0.43 L (0.66-1.25) mg/dL Est GFR (CKD-EPI)AfAm >90 (>60 ml/min/1.73 sqM) Est GFR (CKD-EPI)NonAf >90 (>60 ml/min/1.73 sqM) Glucose 97 (74-99) mg/dL Calcium 8.9 (8.4-10.2) mg/dL Total Bilirubin 0.9 (0.2-1.3) mg/dL AST 301 H (17-59) U/L ALT 99 H (4-49) U/L Alkaline Phosphatase 210 H (38-126) U/L Troponin I <0.012 (0.000-0.034) ng/mL Total Protein 7.5 (6.3-8.2) g/dL Albumin 4.1 (3.5-5.0) g/dL Lipase 170 (23-300) U/L Stool Occult Blood (Negative) Serum Alcohol mg/dL Blood Type Blood Type Confirm Blood Type Recheck Bld Type Recheck Status Antibody Screen Spec Expiration Date 09/09/24 09/09/24 Range/Units 05:46 06:47 WBC (4.50-10.00) 10*3/uL RBC (4.40-5.60) 10*6/uL Hgb (13.0-17.0) g/dL Hct (39.6-50.0) % MCV (80.0-97.0) fL MCH (27.0-32.0) pg MCHC (32.0-37.0) g/dL Plt Count (140-440) 10*3/uL MPV (9.5-12.2) fL Immature Gran % (Auto) % Neutrophils % % Lymphocytes % % Monocytes % % Eosinophils % % Basophils % % Immature Gran # (0.00-0.04) 10*3/uL Neutrophils # (1.80-7.70) 10*3/uL Lymphocytes # (0.90-5.00) 10*3/uL Monocytes # (0.20-1.00) 10*3/uL Eosinophils # (0.04-0.35) 10*3/uL Basophils # (0.00-0.10) 10*3/uL Immature Plt Fraction (1.1-6.1) % PT (10.0-12.5) sec INR (<1.2) APTT (22.0-30.0) sec D-Dimer (<0.60) mg/L FEU Sodium (137-145) mmol/L Potassium (3.5-5.1) mmol/L Chloride (98-107) mmol/L Carbon Dioxide (22-30) mmol/L Anion Gap mmol/L BUN (9-20) mg/dL Creatinine (0.66-1.25) mg/dL Est GFR (CKD-EPI)AfAm (>60 ml/min/1.73 sqM) Est GFR (CKD-EPI)NonAf (>60 ml/min/1.73 sqM) Glucose (74-99) mg/dL Calcium (8.4-10.2) mg/dL Total Bilirubin (0.2-1.3) mg/dL AST (17-59) U/L ALT (4-49) U/L Alkaline Phosphatase (38-126) U/L Troponin I (0.000-0.034) ng/mL Total Protein (6.3-8.2) g/dL Albumin (3.5-5.0) g/dL Lipase (23-300) U/L Stool Occult Blood (Negative) Serum Alcohol 322 H* mg/dL Blood Type Blood Type Confirm O Positive Blood Type Recheck Bld Type Recheck Status Antibody Screen Spec Expiration Date Disposition Clinical Impression: Upper GI bleed, Hemoptysis Disposition: ADMITTED IP TO THIS HOSP Condition: Stable
[2024-09-09] MEDS: POTASSIUM CHLORIDE 20 MEQ in WATER FOR INJECTION 1 100ML.BAG IVPB STA (06:30)
[2024-09-09] MEDS ORDERED: LORazepam 1 MG/0.5 ML VIAL IV PRN (06:41)
--- NOTE | 2024-09-09 07:39 | CT ---
EXAMINATION TYPE: CT chest angio for PE DATE OF EXAM: 09/09/2024 COMPARISON: None CLINICAL INDICATION: Male, 54 years old with history of Shortness of breath; PHH, shortness of breath , SOB or PAIN TECHNIQUE: Ct angiogram of the chest performed with with IV Contrast, patient injected with 65mL mL of Isovue 37 0. MIP images are created and reviewed. CT DLP: 232.[address] CTDI: mGy Automated exposure control for dose reduction was used. FINDINGS: LUNGS: The lungs are grossly clear, there is no concerning parenchymal mass or nodule identified. T here is no pleural effusion or pneumothorax seen. The tracheobronchial tree is patent. There are mil d interstitial changes in the lung bases. MEDIASTINUM: There is satisfactory enhancement of the pulmonary artery and its branches, there is no CT evidence for pulmonary embolism. There are no greater than 1 cm hilar or mediastinal lymph nodes. No pericardial effusion is seen. The heart and pulmonary vasculature are normal. There is moderate elevation of the right hemidiaphragm. IMPRESSION: 1. No evidence of pulmonary embolus. 2. No acute cardiopulmonary disease. Follow-up recommendations for incidental pulmonary nodules are per [employer] or [employer]. [facility], , 09/09/2024 7:37 AM
--- NOTE | 2024-09-09 07:42 | P.CON ---
Consult Note - . Consult date: 09/09/24 Assessment/Plan:: This is a 54 year old male who presents to [facility] with dark stools. He states he has not noted any ayn blood. His stool is fecal occult positive. He denies any epigastric pain or abdominal pain. He denies nausea or vomiting. He states he has been tolerating his diet. Review of Systems ROS Statement: Those systems with pertinent positive or pertinent negative responses have been documented in the HPI. ROS Other: All systems not noted in ROS Statement are negative. Past Medical History Past Medical History: No Reported History History of Any Multi-Drug Resistant Organisms: None Reported Past Surgical History: No Surgical Hx Reported Past Psychological History: Anxiety Smoking Status: Current every day smoker Past Alcohol Use History: Abuse, Daily, Heavy Past Drug Use History: None Reported General-NAD CVS-RRR Lungs-NLB Abdomen-soft, NTND Ext- no edema 54 year old male with GIB -Will plan for EGD and Colonoscopy Wednesday -Clear Liquid Diet -Will do bowel prep tomorrow -PPI -Medicine Reddys Chaim Thao DO [facility] [phone]
[2024-09-09] MEDS ORDERED: NALOXONE 0.4 MG/ML 1 ML VIAL IV PRN (08:08)
[2024-09-09] MEDS ORDERED: MORPHINE SULFATE 4 MG/ML SYRINGE IV PRN (08:08)
[2024-09-09] MEDS ORDERED: ONDANSETRON 4 MG/2 ML VIAL IVP PRN (08:08)
[2024-09-09] MEDS: MULTIVITAMINS, THERA 1 EACH TAB PO SCH (09:16)
[2024-09-09] MEDS: FOLIC ACID 1 MG TAB PO SCH (09:16)
[2024-09-09] MEDS: NICOTINE 14MG/24HR PATCH TRANSDERM SCH (09:17)
[2024-09-09] MEDS: PANTOPRAZOLE 40 MG/10 ML VIAL IVP SCH (09:17)
[2024-09-09] MEDS: SODIUM CHLORIDE 0.9% 1,000 ML IV SCH (09:18)
[2024-09-09] MEDS: THIAMINE 250 MG in SODIUM CHLORIDE 0.9% 50 ML IVPB SCH (09:20)
--- NOTE | 2024-09-09 13:28 | P.HPIM ---
History of Present Illness H&P Date: 09/09/24 Con Prabhakar, is a 54-year-old male who presented to [facility] emergency room with a chief complaint of black tarry stool and coughing up blood, patient has a known history of alcohol abuse, He was evaluated in the emergency room vital examination on presentation revealed a temperature of 98.4 pulse 101 respiration 18 blood pressure 129/89 pulse ox 97% on room air Laboratory data revealed a white blood count of 8.4 hemoglobin 12.6 platelet count 116 D-dimer 0.89 sodium 130 potassium 3.0 chloride 91 BUN 2 creatinine 0.43 Testing in the emergency room revealed CT angiogram of the chest revealed no evidence of pulmonary embolism no acute cardiopulmonary disease Patient was admitted to medical floor for further evaluation and treatment Past Medical History Past Medical History: No Reported History History of Any Multi-Drug Resistant Organisms: None Reported Past Surgical History: No Surgical Hx Reported Past Psychological History: Anxiety Smoking Status: Current every day smoker Past Alcohol Use History: Abuse, Daily, Heavy Past Drug Use History: None Reported Medications and Allergies Home Medications Medication Instructions Recorded Confirmed Type No Known Home Medications 09/09/24 09/09/24 History Allergies Allergy/AdvReac Type Severity Reaction Status Date / Time Sulfa (Sulfonamide Allergy Itchy Eyes Verified 09/09/24 13:23 Antibiotics) Physical Exam Vitals: Vital Signs Temp Pulse Resp BP Pulse Ox 09/09/24 11:34 106 H 16 130/84 95 09/09/24 09:27 102 H 18 117/94 98 09/09/24 07:33 98 18 120/68 95 09/09/24 06:34 98.3 F 87 16 131/79 99 09/09/24 04:22 98.4 F 101 H 18 129/89 97 Intake and Output 09/08/24 09/09/24 09/09/24 22:59 06:59 14:59 Other: Weight 61.235 kg In general patient is alert and oriented x 3 in no distress HEENT head normocephalic and atraumatic Neck is supple no JVD no goiter no lymphadenopathy no carotid bruit Chest examination is clear to auscultation no crackles no wheezing Cardiac exam reveals regular heart sounds S1 and S2 no gallops no murmurs Abdomen is soft nontender no organomegaly with normal bowel sounds Extremity exam reveals no edema no cyanosis or clubbing Neurological examination reveals no gross focal deficits Results CBC & Chem 7: 09/09/24 05:27 09/09/24 05:27 Labs: Abnormal Lab Results - Last 24 Hours (Table) 09/09/24 09/09/24 09/09/24 Range/Units 05:27 05:27 05:27 RBC 4.16 L (4.40-5.60) 10*6/uL Hgb 12.6 L (13.0-17.0) g/dL Hct 34.5 L (39.6-50.0) % Plt Count 116 L (140-440) 10*3/uL Immature Gran # 0.06 H (0.00-0.04) 10*3/uL D-Dimer 0.89 H (<0.60) mg/L FEU Sodium 130 L (137-145) mmol/L Potassium 3.0 L (3.5-5.1) mmol/L Chloride 91 L (98-107) mmol/L BUN <2 L (9-20) mg/dL Creatinine 0.43 L (0.66-1.25) mg/dL AST 301 H (17-59) U/L ALT 99 H (4-49) U/L Alkaline Phosphatase 210 H (38-126) U/L Serum Alcohol mg/dL 09/09/24 Range/Units 06:47 RBC (4.40-5.60) 10*6/uL Hgb (13.0-17.0) g/dL Hct (39.6-50.0) % Plt Count (140-440) 10*3/uL Immature Gran # (0.00-0.04) 10*3/uL D-Dimer (<0.60) mg/L FEU Sodium (137-145) mmol/L Potassium (3.5-5.1) mmol/L Chloride (98-107) mmol/L BUN (9-20) mg/dL Creatinine (0.66-1.25) mg/dL AST (17-59) U/L ALT (4-49) U/L Alkaline Phosphatase (38-126) U/L Serum Alcohol 322 H* mg/dL Assessment and Plan Plan: Episodes of black tarry stools Episode of hemoptysis Elevated D-dimer, no evidence of pulmonary embolism on CT angiogram of the chest Underlying history of alcohol abuse Underlying history of hypertension Underlying history of alcoholic hepatitis Underlying history of tobacco abuse At this time patient was seen and examined Home medications reviewed and reordered Patient was started on IV Ativan in the emergency room per [facility] protocol He was started on IV Protonix Surgical consultation was requested for possible EGD For DVT prophylaxis SCD stockings Patient was counseled in length in regard to alcohol and smoking cessation Will follow closely
[2024-09-09] MEDS: LORazepam 1 MG/0.5 ML VIAL IV PRN (18:35)
[2024-09-09 21:29] LABS: Basophils # (A) 0.05 10*3/uL (0.00-0.10); Basophils % (A) 0.8 %; Eosinophils # (A) 0.05 10*3/uL (0.04-0.35); Eosinophils % (A) 0.8 %; HCT 32.9 % (39.6-50.0); HGB 11.8 g/dL (13.0-17.0); Lymphocytes # (A) 1.33 10*3/uL (0.90-5.00); Lymphocytes % (A) 21.4 %; MCH 30.1 pg (27.0-32.0); MCHC 35.9 g/dL (32.0-37.0); MCV 83.9 fL (80.0-97.0); Mean Platelet Volume 9.2 fL (9.5-12.2); Monocytes # (A) 0.63 10*3/uL (0.20-1.00); Monocytes % (A) 10.1 %; Neutrophils # (A) 4.09 10*3/uL (1.80-7.70); Neutrophils % (A) 65.9 %; Platelet Count 107 10*3/uL (140-440); RBC 3.92 10*6/uL (4.40-5.60); RDW 14.5 % (11.5-14.5); WBC 6.21 10*3/uL (4.50-10.00)
[2024-09-10] MEDS: LORazepam 1 MG/0.5 ML VIAL IV PRN ×2 (06:06→09:29)
--- NOTE | 2024-09-10 09:36 | P.PN ---
Subjective Progress Note Date: 09/10/24 Con Prabhakar, is a 54-year-old male who presented to [facility] emergency room with a chief complaint of black tarry stool and coughing up blood, patient has a known history of alcohol abuse, He was evaluated in the emergency room vital examination on presentation revealed a temperature of 98.4 pulse 101 respiration 18 blood pressure 129/89 pulse ox 97% on room air Laboratory data revealed a white blood count of 8.4 hemoglobin 12.6 platelet count 116 D-dimer 0.89 sodium 130 potassium 3.0 chloride 91 BUN 2 creatinine 0.43 Testing in the emergency room revealed CT angiogram of the chest revealed no evidence of pulmonary embolism no acute cardiopulmonary disease Patient was admitted to medical floor for further evaluation and treatment On 09/10/2024 patient is alert and oriented x 3. Tentative plans for EGD and colonoscopy tomorrow. Patient remains on alcohol withdrawal protocol. Hemoglobin currently pending. Per nursing staff and patient no further episodes of bleeding. Patient denies chest pain or shortness of breath. Patient denies nausea vomiting or diarrhea. Patient denies any urinary burning or frequency Objective - Vital Signs Vital signs: Vital Signs Temp 98.3 F 09/09/24 06:34 Pulse 95 09/10/24 06:25 Resp 18 09/10/24 06:25 BP 162/90 09/10/24 06:25 Pulse Ox 95 09/10/24 06:25 FiO2 - Exam In general patient is alert and oriented x 3 in no distress HEENT head normocephalic and atraumatic Neck is supple no JVD no goiter no lymphadenopathy no carotid bruit Chest examination is clear to auscultation no crackles no wheezing Cardiac exam reveals regular heart sounds S1 and S2 no gallops no murmurs Abdomen is soft nontender no organomegaly with normal bowel sounds Extremity exam reveals no edema no cyanosis or clubbing Neurological examination reveals no gross focal deficits - Labs CBC & Chem 7: 09/09/24 21:21 09/09/24 05:27 Labs: Abnormal Lab Results - Last 24 Hours (Table) 09/09/24 Range/Units 21:21 RBC 3.92 L (4.40-5.60) 10*6/uL Hgb 11.8 L (13.0-17.0) g/dL Hct 32.9 L (39.6-50.0) % Plt Count 107 L (140-440) 10*3/uL MPV 9.2 L (9.5-12.2) fL Immature Gran # 0.06 H (0.00-0.04) 10*3/uL Assessment and Plan Plan: Episodes of black tarry stools Episode of hemoptysis Elevated D-dimer, no evidence of pulmonary embolism on CT angiogram of the chest Underlying history of alcohol abuse Underlying history of hypertension Underlying history of alcoholic hepatitis Underlying history of tobacco abuse At this time patient was seen and examined Home medications reviewed and reordered Patient was started on IV Ativan in the emergency room per [facility] protocol He was started on IV Protonix Surgical consultation was requested for possible EGD For DVT prophylaxis SCD stockings Patient was counseled in length in regard to alcohol and smoking cessation Will follow closely
--- NOTE | 2024-09-10 10:53 | P.PN ---
Progress Note - Text Progress Note Date: 09/10/24 No acute events overnight. General-NAD CVS-RRR Lungs-NLB Abdomen-soft, NTND Ext- no edema 54 year old male with GIB -Will plan for EGD and Colonoscopy tomorrow -Bowel Prep today -Clear Liquid Diet. NPO/midnight -PPI -Medicine Recs Chaim Thao [facility] [phone]
[2024-09-10 11:17] LABS: ALT 68 U/L (4-49); AST 161 U/L (17-59); African American GFR (CKD) >90 (>60 ml/min/1.73 sqM); Albumin 3.7 g/dL (3.5-5.0); Albumin/Globulin Ratio 1.2; Alkaline Phosphatase 175 U/L (38-126); Anion Gap 8 mmol/L; Blood Urea Nitrogen 3 mg/dL (9-20); Calcium 8.9 mg/dL (8.4-10.2); Carbon Dioxide 27 mmol/L (22-30); Chloride 93 mmol/L (98-107); Globulin 3.2 g/dL; Glucose 104 mg/dL (74-99); Non-African American GFR(CKD) >90 (>60 ml/min/1.73 sqM); Potassium 2.8 mmol/L (3.5-5.1); Sodium 128 mmol/L (137-145); Total Bilirubin 1.2 mg/dL (0.2-1.3); Total Protein 6.9 g/dL (6.3-8.2)
[2024-09-10 11:22] LABS: INR 1.2 (<1.2); Prothrombin Time 12.8 sec (10.0-12.5)
[2024-09-10] MEDS: PEG 3350 (236 GM/BTL) + LYTES 4,000 ML BOTTLE PO ONE (11:52)
[2024-09-10] MEDS ORDERED: Potassium Replacement Protocol 1 EACH MISC MISCELLANE PRN (13:57)
[2024-09-10] MEDS: POTASSIUM CHLORIDE ER 20 MEQ TAB.ER PO SCH ×2 (14:11→20:15)
[2024-09-11 01:54] LABS: Basophils # (A) 0.04 10*3/uL (0.00-0.10); Basophils % (A) 0.7 %; Eosinophils % (A) 1.7 %; HGB 12.7 g/dL (13.0-17.0); Immature Platelet Fraction 4.6 % (1.1-6.1); Lymphocytes # (A) 1.33 10*3/uL (0.90-5.00); Lymphocytes % (A) 22.4 %; MCH 30.1 pg (27.0-32.0); MCHC 35.3 g/dL (32.0-37.0); MCV 85.3 fL (80.0-97.0); Mean Platelet Volume 9.9 fL (9.5-12.2); Monocytes # (A) 0.61 10*3/uL (0.20-1.00); Monocytes % (A) 10.3 %; Neutrophils % (A) 64.1 %; Platelet Count 125 10*3/uL (140-440); RBC 4.22 10*6/uL (4.40-5.60); RDW 14.3 % (11.5-14.5); WBC 5.93 10*3/uL (4.50-10.00)
[2024-09-11 02:07] LABS: ALT 65 U/L (4-49); AST 145 U/L (17-59); African American GFR (CKD) >90 (>60 ml/min/1.73 sqM); Albumin 3.6 g/dL (3.5-5.0); Albumin/Globulin Ratio 1.1; Alkaline Phosphatase 191 U/L (38-126); Anion Gap 9 mmol/L; Blood Urea Nitrogen <2 mg/dL (9-20); Calcium 8.9 mg/dL (8.4-10.2); Carbon Dioxide 25 mmol/L (22-30); Chloride 99 mmol/L (98-107); Globulin 3.3 g/dL; Glucose 100 mg/dL (74-99); Non-African American GFR(CKD) >90 (>60 ml/min/1.73 sqM); Potassium 3.8 mmol/L (3.5-5.1); Sodium 133 mmol/L (137-145); Total Bilirubin 1.3 mg/dL (0.2-1.3); Total Protein 6.9 g/dL (6.3-8.2)
[2024-09-11] MEDS: HYDROmorphone 0.5 MG/0.5 ML SYRINGE IVP PRN (06:02)
[2024-09-11 08:04] VITALS: TEMP 98.1
[2024-09-11] MEDS: IV FLUID CONTINUATION 1,000 ML IV ONE (13:54)
[2024-09-11] MEDS ORDERED: LIDOCAINE 1% INJ 10MG/ML (20 ML MDV) ONE (13:54)
[2024-09-11] MEDS ORDERED: PROPOFOL 10 MG/ML 20 ML VIAL IV ONE (13:54)
--- NOTE | 2024-09-11 14:22 | P.PCN ---
Date of Procedure: 09/11/24 Preoperative Diagnosis: Concern for GI bleed Postoperative Diagnosis: Concern for GI bleed Gastritis Procedure(s) Performed: EGD with biopsy Colonoscopy Anesthesia: MAC Surgeon: Joceline Grimm Pathology: other (Biopsies of the duodenum, antrum, GE junction) Condition: stable Disposition: floor Indications for Procedure: 54-year-old male presents with complaint of upper GI bleed. Plan is for upper and lower endoscopy for further evaluation. Risks, benefits and alternatives provided to the patient. All questions answered. Operative Findings: Gastritis Overall normal appearing colon Description of Procedure: The patient was brought into the endoscopy suite and placed in left lateral decubitus position. Adequate sedation was achieved using conscious sedation. A bite-block was placed and an endoscope was placed in the oropharynx and advanced under endoscopic visualization. The endoscope was advanced through the esophagus into the stomach, through the gastric antrum and in through the pylorus. The third portion of duodenum was visualized. The endoscope was then slowly withdrawn. The first portion of duodenum was noted to have inflammatory changes. Biopsies were taken. The antrum was noted to have inflammatory changes. Biopsies were taken. The gastric body distended normally and the gastric folds appeared normal and flattened with insufflation. A retroflexed view of the fundus and GE junction revealed no significant hiatal hernia. GE junction appeared mildly inflamed and biopsies were taken. The esophagus appeared endoscopically normal. Excess air was removed and the scope was withdrawn. The patient was brought to the endoscopy suite and placed in left lateral decubitus position and adequate sedation was achieved using conscious sedation. Digital rectal exam was performed and mild internal hemorrhoids were palpated. An endoscope was then placed in the rectum and advanced to the cecum as identified by landmarks including the appendiceal orifice and the ileocecal valve. The prep was good. The colonoscope was then slowly withdrawn, examining for any mucosal abnormalities. The cecum, ascending, transverse, descending and sigmoid colon were visualized adequately. There were no large neoplastic lesions noted throughout the colon. No obvious polyps noted throughout the colon. No evidence of diverticulosis. Hemostasis was maintained. Retroflexion was performed in the rectum and internal hemorrhoid. Excess air was removed, the colonoscope withdrawn and the procedure terminated. The patient was then transferred to the recovery unit in stable condition. Repeat colonoscopy should be performed in 10 years.
[2024-09-11 14:34] VITALS: BP 127/82; PULSE 104; RESP 20
--- NOTE | 2024-09-11 16:51 | P.DS ---
Providers Date of admission: 09/09/24 08:08 Expected date of discharge: 09/11/24 Attending physician: Brian Dobson Consults: 09/09/24 07:35 Consult Physician Routine Consulting Provider: Chaim Thao Consult Reason/Comments: GIB Do you want consulting provider notified?: Already Contacted Primary care physician: Brianjoseph [facility] Course: Diagnosis on discharge: Episodes of black tarry stools Episode of hemoptysis Elevated D-dimer, no evidence of pulmonary embolism on CT angiogram of the chest Underlying history of alcohol abuse Underlying history of hypertension Underlying history of alcoholic hepatitis Underlying history of tobacco abuse Hospital course: Con Prabhakar, is a 54-year-old male who presented to [facility] emergency room with a chief complaint of black tarry stool and coughing up blood, patient has a known history of alcohol abuse, He was evaluated in the emergency room vital examination on presentation revealed a temperature of 98.4 pulse 101 respiration 18 blood pressure 129/89 pulse ox 97% on room air Laboratory data revealed a white blood count of 8.4 hemoglobin 12.6 platelet count 116 D-dimer 0.89 sodium 130 potassium 3.0 chloride 91 BUN 2 creatinine 0.43 Testing in the emergency room revealed CT angiogram of the chest revealed no evidence of pulmonary embolism no acute cardiopulmonary disease Patient was admitted to medical floor for further evaluation and treatment On 09/10/2024 patient is alert and oriented x 3. Tentative plans for EGD and colonoscopy tomorrow. Patient remains on alcohol withdrawal protocol. Hemoglobin currently pending. Per nursing staff and patient no further episodes of bleeding. Patient denies chest pain or shortness of breath. Patient denies nausea vomiting or diarrhea. Patient denies any urinary burning or frequency On 09/11/2024 patient was seen and examined on the medical floor she is alert and oriented x 3 in no apparent distress there is no fever or chills no headache or dizziness no chest pain no shortness of breath no cough no nausea or vomiting no abdominal pain no diarrhea and no urinary symptoms. He underwent EGD and colonoscopy today EGD revealed evidence of gastritis, colonoscopy did not reveal any significant abnormality. Hemoglobin is up to 12 today, patient is medically stable to be discharged home, he was counseled in length in regard to smoking and alcohol abuse and need for abstinence. He was given a prescription for Protonix 40 mg p.o. daily, follow-up in the office within 1 week with me. Patient Condition at Discharge: Stable Plan - Discharge Summary Discharge Rx Participant: Yes New Discharge Prescriptions: New Nicotine 14Mg/24Hr Patch [Habitrol] 1 patch TRANSDERM DAILY 30 Days #30 patch Pantoprazole [Protonix] 40 mg PO DAILY 30 Days #30 tab Thiamine [Vitamin B-1] 100 mg PO DAILY 30 Days #30 tablet Multivitamins, Thera [Multivitamin (formulary)] 1 each PO DAILY 30 Days #30 tab Discharge Medication List Multivitamins, Thera [Multivitamin (formulary)] 1 each PO DAILY 30 Days #30 tab 09/11/24 [Rx] Nicotine 14Mg/24Hr Patch [Habitrol] 1 patch TRANSDERM DAILY 30 Days #30 patch 09/11/24 [Rx] Pantoprazole [Protonix] 40 mg PO DAILY 30 Days #30 tab 09/11/24 [Rx] Thiamine [Vitamin B-1] 100 mg PO DAILY 30 Days #30 tablet 09/11/24 [Rx] Follow up Appointment(s)/Referral(s): Brian Dobson MD [Primary Care Provider] - 1-2 days Discharge/Stand Alone Forms: AA Nadine Lee, Outpatient Counseling, In Substance Abuse Facilities
== END 2024-09-11 17:18 | disposition home or self-care (01) ==
LOC: EC 04:17 → 6NMEDSUR 08:08 → 4SSUR 21:38
PROVIDERS: ADMIT Internal Medicine; ATTEND Internal Medicine
DX: K29.80 Duodenitis without bleeding (principal); K29.50 Unspecified chronic gastritis without bleeding; K64.8 Other hemorrhoids; R79.89 Other specified abnormal findings of blood chemistry; I10 Essential (primary) hypertension; K70.10 Alcoholic hepatitis without ascites; F10.10 Alcohol abuse, uncomplicated; F41.9 Anxiety disorder, unspecified; F17.210 Nicotine dependence, cigarettes, uncomplicated; Y90.8 Blood alcohol level of 240 mg/100 ml or more; Z79.899 Other long term (current) drug therapy; Z88.2 Allergy status to sulfonamides
CPT/HCPCS: 96376 ×4; 96365 ×2; 96366 ×4; 96375 ×2; 96361; 96367; 99285; 36415; 93005; 86900; 86901; 85379; 88305; 80053 ×3; 83690; 84132; 84484; 85025 ×2; 85610 ×2; 85730; 86850; 82272; 71275; 45378; 43239; G0378 ×4; G0480; S4990 ×3; J2060 ×2; J3411 ×3; J3480; J2003; J2704; J1171; Q9967; J2470 ×3; 80320